=== PATIENT | female | born 1975 | race Caucasian/White ===

== ENCOUNTER 2022-10-11 11:50 | Outpatient (REF) | payer OTHER, SELFPAY ==
[2022-10-11 13:55] LABS: Appearance Urine Hazy; Color Urine Orange; Leukocyte Esterase Urine Negative (Negative); UMIC TRIGGER UACC YES; Urine Ketones Negative (Negative)
[2022-10-11 14:03] LABS: Bacteria Urine None Seen (None Seen); Hyaline Casts Urine 0-2 /LPF (0-2); Squamous Epithelial Cell Urine 0-2 /HPF (0-2); UACC Culture Trigger YES
== END 2022-10-11 11:51 | disposition home or self-care (01) ==
LOC: HO.MANLNP 11:50
PROVIDERS: Visit Provider Physician Assistant
DX: N10 Acute pyelonephritis (principal)
CPT/HCPCS: 81001; 87086; 87088; 87186

== ENCOUNTER 2022-10-18 11:30 | Outpatient (REF) | payer OTHER, SELFPAY ==
[2022-10-18 17:43] LABS: Appearance Urine Clear; Color Urine Yellow; Glucose Urine UA Negative (Negative); Leukocyte Esterase Urine Negative (Negative); Nitrite Urine Negative (Negative); PH 5.5 (5.0-9.0); UMIC TRIGGER UACC YES; Urine Blood Negative (Negative); Urine Ketones Negative (Negative); Urine Protein 30 (1+) mg/dL (Neg-Trace)
[2022-10-18 20:16] LABS: Bacteria Urine None Seen (None Seen); Hyaline Casts Urine 0-2 /LPF (0-2); RBC Urine 0-2 /HPF (0-2); Squamous Epithelial Cell Urine 0-2 /HPF (0-2); WBC Urine 0-5 /HPF (0-5)
== END 2022-10-18 11:31 | disposition home or self-care (01) ==
LOC: HO.MANLNP 11:30
PROVIDERS: Visit Provider Physician Assistant
DX: N10 Acute pyelonephritis (principal)
CPT/HCPCS: 81001